=== PATIENT | male | born 2000 | race Caucasian/White ===

== ENCOUNTER 2024-09-29 07:57 | Emergency (ER) | payer BC, SELFPAY ==
[2024-09-29 07:59] VITALS: BP 125/82
--- NOTE | 2024-09-29 08:56 | ED.GENMED ---
History of Present Illness
General
Chief Complaint: Chest Pain
Source: patient
Exam Limitations: none
Time Seen by Provider: 09/29/24 08:45
Nursing documentation reviewed up to this point in time: agreed with
History of Present Illness
History of Present Illness:
24year-old male presents to the ER for evaluation of right-sided chest pain. Patient was awoken by chest pain around 6 AM in his right anterior chest area. It persisted while he was driving to work around 7 AM. He reports he had a lot of pain
with breath while driving. He felt short of breath because of this. He denies any recent injury. He has no past medical history. He did have several episodes of coughing yesterday but denies any recent illness fever chills.
He denies any upper abdominal pain back pain. He has not taken anything for symptoms.
Review of Systems
Review of Systems
Allergies reviewed?: Yes
All Other Systems: ROS reviewed and negative except as documented in HPI and ROS
Constitutional: Reports no symptoms; Denies fever, fatigue or chills
Respiratory: Reports trouble breathing and other ( pain with deep breath )
Cardiac: Reports chest pain (right sided cp )
ABD/GI: Reports no symptoms; Denies abdominal pain, nausea, vomiting or diarrhea
: Reports no symptoms
Musculoskeletal: Reports no symptoms
Skin: Reports no symptoms
Neurological: Reports no symptoms
Psychiatric: Reports no symptoms
Phy Exam
General Physical Exam
General Presentation: no apparent distress
General age: appears stated age
General Skin: warm and dry
General Habitus: normal
General Mental: alert
General Hydration: appears well hydrated
Cardiovascular Exam
Cardiovascular Exam: regular rate/rhythm, no murmur and normal peripheral pulses
Pulmonary Exam
Pulmonary Exam: lungs clear, no respiratory distress and other (tender right anterior chest )
Gastrointestinal Exam
Gastrointestinal Exam: normal bowel sounds, non tender and soft
Neurological Exam
Neurological Exam: alert and oriented x3
Musculoskeletal Exam
Musculoskeletal Exam: full ROM
Skin Exam
Skin Exam: normal color and warm/dry
Psychiatric Exam
Psychiatric Exam: normal mood/affect
Scores
Heart Score for Chest Pain Patients
STEMI patient?: Not applicable
Course
Orders/Labs/Results
Orders:
Orders
09/29/24 07:59
Electrocardiogram (*1) Urgent
Reason for Study: Chest Pain
EKG- Treatment ONCE
09/29/24 08:56
Cardiac Monitoring- Treatment ONCE
CR Chest - 2 Views Urgent
Comment:
Reason For Exam: right sided cp/sob
09/29/24 08:57
IV Insert/Care/Rem.- Treatment PRN
Ketorolac [Toradol] 15 mg IV NOW STA
09/29/24 09:16
Complete Blood Count/With Diff Urgent
Comprehensive Metabolic Panel Urgent
D-Dimer Urgent
Troponin I Urgent
Abnormal Lab Results
09/29/24
09:16
RBC 4.51 L 10^6/uL
(4.70-6.10)
Absolute Lymphs (auto) 1.1 L 10^3/uL
(1.2-3.4)
Absolute Monos (auto) 0.8 H 10^3/uL
(0.1-0.6)
Lymphocytes % 15.3 L %
(20.5-51.1)
Monocytes % 10.5 H %
(1.7-9.3)
Glucose 100 H mg/dl
(70-99)
09/29/24 09:16
09/29/24 09:16
Vital Signs
Initial and Last Documented VS:
Initial Vital Signs
Temp Pulse Resp BP Pulse Ox
97.6 F 80 16 125/82 100
09/29/24 07:59 09/29/24 07:59 09/29/24 07:59 09/29/24 07:59 09/29/24 07:59
Last Documented Vital Signs
Temp Pulse Resp BP Pulse Ox
97.6 F 78 17 114/75 98
09/29/24 07:59 09/29/24 10:15 09/29/24 10:15 09/29/24 10:00 09/29/24 10:15
Drying Machine Back Tender consulted with Physician
Drying Machine Back Tender consulted with physician?: Yes
Name of Physician Consulted: Ch[facility]
MDM/Problems Addressed
Differential Diagnosis Includes:
not limited to musculoskeletal pain less likely PE, pneumothorax, less likely ACS ,costochondritis
MDM/Problems Addressed:
Patient is a healthy 24-year-old male who presented with right-sided chest pain since this morning. He had pain with deep breath. He denies any injury. He does not smoke. No cardiac risk factors no PE DVT risk factors. Patient presents awake
alert no acute distress does complain of pain with deep breath. He is nontoxic-appearing given Toradol with slight improvement. Patient is nontachypneic nontachycardic afebrile not hypoxic with a normal white count, normal labs including normal
D-dimer. Negative chest x-ray.
Pain is pleuritic in nature though no acute concerning findings for workup safe to discharge home with alternating ibuprofen and Tylenol.
*Radiology
Radiology exam reviewed: radiology read reviewed
*Pulse Oximetry
Patient hypoxic: no
*EKG
Interpreted by ED Provider?: Yes
Heart Rate: 62
Rate: normal
Rhythm: sinus
Ischemia: no ischemia
*Critical Care Note
Total Time (30-74mins, 75-104mins- exclusive of procedures): Not Applicable
ED Attending Note
-
Portions of this chart may have been created with voice recognition software.� Occasional wrong word or��sound alike� substitutions may have occurred due to the inherent limitations of voice recognition software.
Discharge Plan
Departure
Patient Disposition: Home (Routine Discharge)
Date of Disposition: 09/29/24
Time of Disposition: 11:47
Patient with high blood pressure during this ER visit?: No
Condition: Fair
Covid-19: Not Applicable
Discharge Problem:
Chest wall pain
Instructions: Chest Pain PCP Follow Up
Prescriptions:
No Action
No Current Medications
0
Referrals:
Haim Peace DO [Family Provider] -
Activity Restrictions/Additional Instructions:
As discussed your workup here in the ER was unremarkable for any concerning causes of your chest pain. It is possible that this is musculoskeletal pain. You may take ibuprofen and alternate with Tylenol. Closely follow-up with family doctor the
next several days return if any worsening of symptoms.
Interventions
Interventions:
*Risk Screen - Suicide Last Done: 09/29/24 08:00
*Neglect/Abuse Screening Last Done: 09/29/24 08:00
*ED COVID-19 Vaccine History Last Done: 09/29/24 08:00
ED- Cardiac Assessment Last Done: 09/29/24 10:30
Discharge Date and Time
Print Language: LAO
[2024-09-29 09:07] VITALS: BMI 28.8
[2024-09-29] MEDS: TORADOL 15 MG IV (09:16)
[2024-09-29 09:29] VITALS: BP 116/82
[2024-09-29 09:32] LABS: % Basophils 0.4 % (0-2); % Eosinophils 3.4 % (0-6); % Immature Granulocytes 0.3 % (0-0.5); % Lymphocytes 15.3 % (20.5-51.1); % Monocytes 10.5 % (1.7-9.3); % Neutrophils 70.1 % (42.2-75.2); Absolute Eosinophils 0.2 10^3/uL (0-0.7); Absolute Lymphocytes 1.1 10^3/uL (1.2-3.4); Absolute Monocytes 0.8 10^3/uL (0.1-0.6); Mean Corp Hgb Conc. 35.9 g/dL (33.0-37.0); Mean Corpuscular Volume 86.5 fL (80.0-94.0); Nucleated Red Blood Cells % 0 % (-); Platelet Count 236 10^3/uL (130-400); Red Blood Cell Count 4.51 10^6/uL (4.70-6.10); Red Cell Dist. Width 11.6 % (11.5-14.5); White Blood Cell Count 7.1 10^3/uL (4.8-10.8)
[2024-09-29 09:41] LABS: ALT (SGPT) 19 U/L (0-50); AST (SGOT) 21 U/L (17-59); Albumin 4.5 g/dl (3.5-5.0); Alkaline Phosphatase 51 U/L (38-126); Blood Urea Nitrogen 13 mg/dl (9-20); Calcium 9.8 mg/dl (8.4-10.2); Carbon Dioxide 30 mmol/L (22-30); Chloride 101 mmol/L (98-107); D-Dimer < 0.27 ug/mlFEU (0.00-0.50); Estimated Creatinine Clearance 119 ml/min; Glucose 100 mg/dl (70-99); Potassium 4.5 mmol/L (3.5-5.1); Sodium 141 mmol/L (135-145); Total Bilirubin 0.6 mg/dl (0.2-1.3); Total Protein 7.2 g/dl (6.3-8.2); eGFR > 60.00
[2024-09-29 09:53] LABS: Troponin I < 0.012 ng/ml
[2024-09-29 10:00] VITALS: BP 114/75
[2024-09-29 11:00] VITALS: BP 115/76
[2024-09-29 12:00] VITALS: BP 115/76
== END 2024-09-29 12:07 | disposition home or self-care (01) ==
LOC: EMR 07:57
PROVIDERS: Nurse Practitioner; EMERGENCY PHYSICIAN Emergency Medicine; FAMILY PHYSICIAN Family Medicine
DX: R07.89 Other chest pain (principal)
CPT/HCPCS: 99285; 96374; 71046; 80053; 84484; 85025; 85379; 93005